=== PATIENT | female | born 1960 | race African-American/Black ===

== ENCOUNTER 2022-04-02 11:18 | Emergency (ER) | payer OTHER ==
[2022-04-02 11:31] VITALS: BP 151/86; PULSE 106; RESP 22; TEMP 98.6; BMI 31.1
[2022-04-02 13:45] LABS: BASO % 1.1 % (0-2.0); EOS % 2.6 % (0-4.5); HEMOGLOBIN 12.1 GM/dL (10.7-15.3); LYMPH % 23.2 % (8-40); MCH 29.3 pg (25.7-33.7); MCHC 31.8 g/dl (32.0-36.0); MEAN CELL VOLUME 91.9 fl (80-96); MEAN PLT VOLUME 9.2 fl (7.5-11.1); MONO % 6.9 % (3.8-10.2); NEUT % 66.2 % (42.8-82.8); PLATELET COUNT 336 10^3/uL (134-434); RBC 4.14 M/mm3 (3.60-5.2); RDW 15.4 % (11.6-15.6); WHITE BLOOD COUNT 8.1 K/mm3 (4.0-10.0)
[2022-04-02 13:59] LABS: INR 1.08 (0.83-1.09); PROTHROMBIN TIME (PATIENT) 12.4 SEC (9.7-13.0)
[2022-04-02 15:35] LABS: BLOOD UREA NITROGEN 4.3 mg/dL (7-18); CREATININE 0.7 mg/dL (0.55-1.3)
[2022-04-02 15:36] LABS: ALBUMIN 3.5 g/dl (3.4-5.0); BILIRUBIN,TOTAL 0.4 mg/dL (0.2-1); N-TERMINAL BNP 36.4 pg/ml (5-125); TOT PROT 7.9 g/dl (6.4-8.2)
== END 2022-04-02 17:28 | disposition home or self-care (01) ==
LOC: JERFT 11:18 → JER 11:18 → JERFT 17:28
DX: R06.02 Shortness of breath (principal)
CPT/HCPCS: 36415; 71046-TC-FY; 71275-TC; 80053; 83880; 84484; 85025; 85610; 93005; 93010; 99285-25; Q9967

== ENCOUNTER 2023-04-13 15:07 | Emergency (ER) | payer OTHER ==
[2023-04-13 15:28] VITALS: BP 112/73; PULSE 88; RESP 21; TEMP 98.2; BMI 34.0
[2023-04-13] MEDS ORDERED: DEXAMETHASONE SOD PHOSPHATE 10 MG/1 ML VIAL PO ONE (16:06)
[2023-04-13] MEDS ORDERED: BENZONATATE 200 MG CAPSULE PO ONE (16:07)
[2023-04-13] MEDS ORDERED: ALBUTEROL SO4 2.5/IPRATROPIUM 0.5 INH SOL 3 ML VIAL.NEB. NEB ONE (16:09)
[2023-04-13] MEDS ORDERED: DEXAMETHASONE SOD PHOSPHATE 10 MG/1 ML VIAL ONE (16:09)
[2023-04-13] MEDS: ALBUTEROL SO4 2.5/IPRATROPIUM 0.5 INH SOL 3 ML VIAL.NEB. NEB SCH ×2 (16:12→16:13)
== END 2023-04-13 18:33 | disposition home or self-care (01) ==
LOC: JERFT 15:07
PROC: 3E0F7GC Introduction of Other Therapeutic Substance into Respiratory Tract, Via Natural or Artificial Opening (ICD-10-PCS; principal; 2023-04-13)
DX: R09.81 Nasal congestion (principal); R05.1 Acute cough; J31.0 Chronic rhinitis
CPT/HCPCS: 26055; 71046-TC-FY; 99283-25; J1100

== ENCOUNTER 2023-04-18 12:41 | Emergency (ER) | payer OTHER ==
[2023-04-18 12:56] VITALS: BP 147/82; PULSE 108; RESP 18; TEMP 98.6; BMI 33.6
[2023-04-18] MEDS ORDERED: IBUPROFEN 600 MG TABLET (FP) PO ONE (14:22)
[2023-04-18] MEDS ORDERED: ALBUTEROL SO4 2.5/IPRATROPIUM 0.5 INH SOL 3 ML VIAL.NEB. NEB ONE (14:23)
[2023-04-18] MEDS ORDERED: IBUPROFEN 400 MG TABLET (FP) PO ONE (14:24)
[2023-04-18] MEDS: ALBUTEROL SO4 2.5/IPRATROPIUM 0.5 INH SOL 3 ML VIAL.NEB. NEB SCH ×3 (14:31→15:15)
[2023-04-18] MEDS ORDERED: DEXAMETHASONE SOD PHOSPHATE 10 MG/1 ML VIAL IM ONE (14:34)
[2023-04-18] MEDS ORDERED: AZITHROMYCIN 250 MG TABLET PO ONE (14:35)
[2023-04-18] MEDS ORDERED: DEXAMETHASONE SOD PHOSPHATE 10 MG/1 ML VIAL ONE (14:37)
[2023-04-18] MEDS ORDERED: AZITHROMYCIN 500 MG TABLET ONE (14:37)
== END 2023-04-18 15:57 | disposition home or self-care (01) ==
LOC: JER 12:41
PROC: 3E023GC Introduction of Other Therapeutic Substance into Muscle, Percutaneous Approach (ICD-10-PCS; principal; 2023-04-18)
PROC: 3E0F7GC Introduction of Other Therapeutic Substance into Respiratory Tract, Via Natural or Artificial Opening (ICD-10-PCS; 2023-04-18)
DX: K59.00 Constipation, unspecified (principal); R05.9 Cough, unspecified; R09.3 Abnormal sputum; M79.10 Myalgia, unspecified site; R09.81 Nasal congestion; J44.1 Chronic obstructive pulmonary disease with (acute) exacerbation; M54.6 Pain in thoracic spine; Z20.822 Contact with and (suspected) exposure to COVID-19
CPT/HCPCS: 0241U-QW; 99284-25; J1100

== ENCOUNTER 2023-05-06 10:31 | Observation (INO) | payer OTHER ==
[2023-05-06 11:18] VITALS: BMI 35.1
[2023-05-06] MEDS ORDERED: methylPREDNISolone NA SUCC 125 MG/2 ML VIAL IVPUSH ONE (12:18)
[2023-05-06] MEDS ORDERED: ALBUTEROL SO4 2.5/IPRATROPIUM 0.5 INH SOL 3 ML VIAL.NEB. NEB ONE ×2 (12:18→12:41)
[2023-05-06] MEDS ORDERED: ACETAMINOPHEN 1000 MG/100 ML BAG IVPB ONE (12:19)
[2023-05-06] MEDS ORDERED: methylPREDNISolone NA SUCC 125 MG/2 ML VIAL ONE (13:00)
[2023-05-06] MEDS ORDERED: ACETAMINOPHEN INJECTION 100 ML IVPB ONE (13:00)
[2023-05-06 13:23] LABS: VENOUS BASE EXCESS -4.2 mmol/L (-2-2); VENOUS O2 SATURATION 72.6 % (70-80); VENOUS PH 7.322 (7.310-7.410)
[2023-05-06 13:26] LABS: BASO % 0.8 % (0-2.0); EOS % 8.1 % (0-4.5); HEMATOCRIT 35.5 % (32.4-45.2); MCH 30.9 pg (25.7-33.7); MCHC 30.9 g/dl (32.0-36.0); MEAN CELL VOLUME 99.8 fl (80-96); MEAN PLT VOLUME 8.9 fl (7.5-11.1); MONO % 5.1 % (3.8-10.2); PLATELET COUNT 358 10^3/uL (134-434); RBC 3.56 M/mm3 (3.60-5.2); RDW 15.2 % (11.6-15.6); WHITE BLOOD COUNT 12.5 K/mm3 (4.0-10.0)
[2023-05-06 14:01] LABS: ALBUMIN 3.2 g/dl (3.4-5.0); BLOOD UREA NITROGEN 8.3 mg/dL (7-18); CALCIUM 9.4 mg/dL (8.5-10.1)
[2023-05-06 14:04] LABS: CREATININE 0.8 mg/dL (0.55-1.3)
[2023-05-06 14:09] LABS: BILIRUBIN,TOTAL 0.3 mg/dL (0.2-1)
[2023-05-06 14:10] LABS: INR 0.97 (0.83-1.09); PROTHROMBIN TIME (PATIENT) 11.3 SEC (9.7-13.0)
[2023-05-06 14:13] LABS: ACTIVATED PTT 31.1 SECONDS (25.2-36.5)
[2023-05-06] MEDS ORDERED: ALBUTEROL SO4 2.5/IPRATROPIUM 0.5 INH SOL 3 ML VIAL.NEB. NEB PRN (16:23)
[2023-05-06] MEDS ORDERED: DOXYCYCLINE INJECTION 100 MG in DEXTROSE 5%-WATER 100 ML IVPB SCH (16:30)
[2023-05-06] MEDS ORDERED: CEFTRIAXONE 1 GM/50 ML BAG ONE ×2 (16:56→16:57)
[2023-05-06] MEDS ORDERED: DOXYCYCLINE HYCLATE 100 MG VIAL ONE (16:56)
[2023-05-06] MEDS ORDERED: PIPERACILLIN/TAZOB 3.375 GM 3.375 GM in DEXTROSE 5%-WATER - 50 ML IVPB SCH (17:00)
[2023-05-06] MEDS ORDERED: VANCOMYCIN 1 GRAM (PRE-DOCKED) 1,000 MG/250 ML BAG IVPB ONE (17:00)
[2023-05-06] MEDS: CEFTRIAXONE 1 GM in DEXTROSE 5%-WATER - 50 ML IVPB SCH (17:11)
[2023-05-06] MEDS ORDERED: MIDAZOLAM HCL 2 MG/2 ML SINGLE DOSE VIAL ONE (17:13)
[2023-05-06] MEDS ORDERED: INSULIN (NOVOLOG) ASPART 100 UNITS/ML 10ML VIAL ONE (17:19)
[2023-05-06] MEDS ORDERED: ENOXAPARIN NA (PORCINE) 40 MG/0.4 ML DISP.SYRIN SQ ONE (17:19)
[2023-05-06] MEDS ORDERED: AZITHROMYCIN IVPB 500 MG/250 ML BAG IVPB ONE ×2 (17:30→17:39)
[2023-05-06] MEDS: INSULIN SLIDING SCALE (NOVOLOG) 1 VIAL SQ SCH (17:32)
[2023-05-06] MEDS: ENOXAPARIN NA (PORCINE) 40 MG/0.4 ML DISP.SYRIN SQ SCH (17:33)
[2023-05-06] MEDS ORDERED: methylPREDNISolone NA SUCC 40 MG/1 ML VIAL IVPB SCH (22:00)
[2023-05-07] MEDS: INSULIN SLIDING SCALE (NOVOLOG) 1 VIAL SQ SCH ×3 (00:12→11:06)
[2023-05-07] MEDS: BUDESONIDE/FORMETEROL FUMARATE 80/4.5 mcg INHALER IH SCH ×2 (00:31→09:23)
[2023-05-07 06:43] LABS: BASO % 0.3 % (0-2.0); HEMATOCRIT 30.6 % (32.4-45.2); HEMOGLOBIN 9.6 GM/dL (10.7-15.3); LYMPH % 8.2 % (8-40); MCH 30.6 pg (25.7-33.7); MCHC 31.5 g/dl (32.0-36.0); MEAN CELL VOLUME 97.2 fl (80-96); MEAN PLT VOLUME 8.9 fl (7.5-11.1); MONO % 3.9 % (3.8-10.2); NEUT % 87.6 % (42.8-82.8); PLATELET COUNT 351 10^3/uL (134-434); RBC 3.15 M/mm3 (3.60-5.2); RDW 15.2 % (11.6-15.6); WHITE BLOOD COUNT 14.5 K/mm3 (4.0-10.0)
[2023-05-07 06:56] LABS: POTASSIUM 4.2 mmol/L (3.5-5.1)
[2023-05-07 06:57] VITALS: RESP 20
[2023-05-07 07:02] LABS: CALCIUM 9.6 mg/dL (8.5-10.1)
[2023-05-07 07:03] LABS: ALBUMIN 3.1 g/dl (3.4-5.0)
[2023-05-07 07:05] LABS: PHOSPHOROUS 2.7 mg/dL (2.5-4.9)
[2023-05-07 07:06] LABS: CREATININE 0.9 mg/dL (0.55-1.3)
[2023-05-07 07:07] LABS: BILIRUBIN,TOTAL 0.4 mg/dL (0.2-1); TOT PROT 6.6 g/dl (6.4-8.2)
[2023-05-07] MEDS: methylPREDNISolone NA SUCC 40 MG/1 ML VIAL IVPUSH SCH ×2 (08:37→09:23)
[2023-05-07] MEDS: PANTOPRAZOLE 20 MG TABLET PO SCH ×2 (08:37→09:23)
[2023-05-07] MEDS: ENOXAPARIN NA (PORCINE) 40 MG/0.4 ML DISP.SYRIN SQ SCH ×2 (08:37→09:22)
[2023-05-07] MEDS: CEFTRIAXONE 1 GM in DEXTROSE 5%-WATER - 50 ML IVPB SCH ×2 (08:39→09:23)
[2023-05-07] MEDS ORDERED: CEFTRIAXONE 1 GM/50 ML BAG ONE (08:39)
[2023-05-07] MEDS ORDERED: AZITHROMYCIN IVPB 250 MG in DEXTROSE 5%-WATER - 250 ML IVPB SCH (10:00)
[2023-05-07 11:51] VITALS: BP 160/76; PULSE 100; TEMP 97.8
== END 2023-05-07 12:00 | disposition home or self-care (01) ==
LOC: JER 10:31 → JERBED 15:53
PROVIDERS: ADMIT Student in an Organized Health Care Education/Training Program
PROC: 3E033NZ Introduction of Analgesics, Hypnotics, Sedatives into Peripheral Vein, Percutaneous Approach (ICD-10-PCS; principal; 2023-05-06)
PROC: 3E0F7GC Introduction of Other Therapeutic Substance into Respiratory Tract, Via Natural or Artificial Opening (ICD-10-PCS; 2023-05-06)
PROC: 3E03329 Introduction of Other Anti-infective into Peripheral Vein, Percutaneous Approach (ICD-10-PCS; 2023-05-06)
PROC: 3E013VG Introduction of Insulin into Subcutaneous Tissue, Percutaneous Approach (ICD-10-PCS; 2023-05-06)
DX: J44.1 Chronic obstructive pulmonary disease with (acute) exacerbation (principal); E11.9 Type 2 diabetes mellitus without complications; I10 Essential (primary) hypertension; B20 Human immunodeficiency virus [HIV] disease; Z72.0 Tobacco use; Z88.2 Allergy status to sulfonamides
CPT/HCPCS: 0241U-QW; 36415; 71045-TC-FY; 71250-TC; 80053; 82308; 82803; 82962; 83735; 84100; 84484; 85025; 85610; 85730; 87081; 87899; 94640; 96365; 96372; 96375; 99285-25; G0378

== ENCOUNTER 2024-07-26 14:21 | Emergency (ER) | payer OTHER ==
[2024-07-26 14:31] VITALS: TEMP 98.9; BMI 34.4
[2024-07-26] MEDS ORDERED: CIPROFLOXACIN 400 MG/D5W 400 MG/200 ML IVPB IVPB ONE (15:14)
[2024-07-26] MEDS ORDERED: ALBUTEROL SO4 0.083% IH SOL 2.5 MG/3 ML VIAL.NEB. NEB ONE (15:15)
[2024-07-26] MEDS: ALBUTEROL SO4 0.083% IH SOL 2.5 MG/3 ML VIAL.NEB. NEB ONE (15:23)
[2024-07-26] MEDS ORDERED: ALBUTEROL SO4 2.5/IPRATROPIUM 0.5 INH SOL 3 ML VIAL.NEB. NEB ONE (15:30)
[2024-07-26] MEDS: ALBUTEROL SO4 2.5/IPRATROPIUM 0.5 INH SOL 3 ML VIAL.NEB. NEB SCH (16:10)
[2024-07-26 16:11] LABS: VENOUS BASE EXCESS -3.2 mmol/L (-2-2); VENOUS O2 SATURATION 59.2 % (70-80); VENOUS PCO2 47.9 mmHg (38-52); VENOUS PH 7.306 (7.310-7.410)
[2024-07-26 16:12] LABS: BASO % 0.5 % (0-2.0); EOS % 1.5 % (0-4.5); HEMATOCRIT 36.6 % (32.4-45.2); HEMOGLOBIN 11.9 GM/dL (10.7-15.3); LYMPH % 22.4 % (8-40); MCH 30.2 pg (25.7-33.7); MCHC 32.6 g/dl (32.0-36.0); MEAN CELL VOLUME 92.5 fl (80-96); MEAN PLT VOLUME 8.8 fl (7.5-11.1); MONO % 10.6 % (3.8-10.2); PLATELET COUNT 177 10^3/uL (134-434); RBC 3.95 M/mm3 (3.60-5.2); RDW 14.5 % (11.6-15.6)
[2024-07-26] MEDS: SODIUM CHLORIDE 1,000 ML IV STA ×2 (16:20→18:41)
[2024-07-26] MEDS ORDERED: PIPERACILLIN/TAZOB 4.5 GM 4.5 GM/100 ML BAG IVPB ONE (16:25)
[2024-07-26] MEDS ORDERED: VANCOMYCIN 1 GM PREMIX (F) 1 GM/200 ML BAG ONE (16:25)
[2024-07-26] MEDS ORDERED: ACETYLCYSTEINE 20% 200MG/ML 4 ML VIAL *FOR ORAL / INH USE ONLY ONE (16:27)
[2024-07-26 16:32] LABS: POTASSIUM 5.6 mmol/L (3.5-5.1)
[2024-07-26 16:35] LABS: ALBUMIN 3.2 g/dl (3.4-5.0); BLOOD UREA NITROGEN 10.8 mg/dL (7-18); CALCIUM 9.5 mg/dL (8.5-10.1)
[2024-07-26] MEDS: PIPERACILLIN/TAZOB 4.5 GM 4.5 GM in DEXTROSE 5%-WATER 100 ML IVPB ONE (16:37)
[2024-07-26] MEDS: ACETYLCYSTEINE 20% 200MG/ML 30 ML VIAL *FOR ORAL / INH USE ONLY NEB ONE (16:37)
[2024-07-26 16:39] LABS: BILIRUBIN,TOTAL 0.4 mg/dL (0.2-1)
[2024-07-26 16:40] LABS: TOT PROT 7.2 g/dl (6.4-8.2)
[2024-07-26 16:43] LABS: N-TERMINAL BNP 22.9 pg/ml (5-125)
[2024-07-26 17:05] VITALS: RESP 20
[2024-07-26] MEDS: VANCOMYCIN 1,000 MG in DEXTROSE 5%-WATER - 250 ML IVPB ONE (18:41)
[2024-07-26 19:54] VITALS: BP 115/51; PULSE 94
== END 2024-07-26 20:12 | disposition home or self-care (01) ==
LOC: JER 14:21
PROC: 3E03329 Introduction of Other Anti-infective into Peripheral Vein, Percutaneous Approach (ICD-10-PCS; principal; 2024-07-26)
PROC: 3E03329 Introduction of Other Anti-infective into Peripheral Vein, Percutaneous Approach (ICD-10-PCS; 2024-07-26)
PROC: 3E033GC Introduction of Other Therapeutic Substance into Peripheral Vein, Percutaneous Approach (ICD-10-PCS; 2024-07-26)
PROC: 3E0F7GC Introduction of Other Therapeutic Substance into Respiratory Tract, Via Natural or Artificial Opening (ICD-10-PCS; 2024-07-26)
DX: J10.1 Influenza due to other identified influenza virus with other respiratory manifestations (principal); R05.9 Cough, unspecified; R09.81 Nasal congestion; M79.10 Myalgia, unspecified site; R50.9 Fever, unspecified; Z20.822 Contact with and (suspected) exposure to COVID-19
CPT/HCPCS: 0241U-QW; 36415; 71046-TC-FY; 80053; 82803; 83605; 83880; 84484; 85025; 93005; 93010; 99291

== ENCOUNTER 2024-10-04 10:15 | Emergency (ER) | payer OTHER ==
[2024-10-04 10:50] VITALS: TEMP 98.3; BMI 32.5
[2024-10-04] MEDS ORDERED: KETOROLAC TROMETHAMINE 30 MG/1 ML VIAL ONE (10:53)
[2024-10-04] MEDS ORDERED: METHOCARBAMOL 500 MG TABLET ONE (10:53)
[2024-10-04] MEDS: METHOCARBAMOL 500 MG TABLET PO ONE (11:05)
[2024-10-04] MEDS: KETOROLAC TROMETHAMINE 30 MG/1 ML VIAL IM ONE (11:05)
[2024-10-04] MEDS ORDERED: LIDOCAINE 4% PATCH TP ONE (12:27)
[2024-10-04] MEDS: LIDOCAINE 4% PATCH TP ONE (12:33)
[2024-10-04 14:55] VITALS: BP 158/72; PULSE 78; RESP 20
[2024-10-04] MEDS ORDERED: LIDOCAINE PATCH REMOVAL MC SCH (22:00)
== END 2024-10-04 16:04 | disposition home or self-care (01) ==
LOC: JER 10:15
PROC: 3E0233Z Introduction of Anti-inflammatory into Muscle, Percutaneous Approach (ICD-10-PCS; principal; 2024-10-04)
DX: M25.552 Pain in left hip (principal); M79.652 Pain in left thigh; M25.561 Pain in right knee; M25.562 Pain in left knee; G89.29 Other chronic pain
CPT/HCPCS: 73502-TC-LT-FY; 99284-25

== ENCOUNTER 2024-11-10 18:38 | Emergency (ER) | payer OTHER ==
[2024-11-10 18:54] VITALS: PULSE 103; TEMP 98.8; BMI 33.0
[2024-11-10 19:34] VITALS: BP 121/56; RESP 23
[2024-11-10] MEDS ORDERED: ALBUTEROL SO4 2.5/IPRATROPIUM 0.5 INH SOL 3 ML VIAL.NEB. NEB ONE ×2 (20:39→22:13)
[2024-11-10] MEDS: ALBUTEROL SO4 2.5/IPRATROPIUM 0.5 INH SOL 3 ML VIAL.NEB. NEB ONE (20:40)
[2024-11-10 20:56] LABS: BASOPHILS # 0.04 x10^3/uL (0.01-0.08); EOSINOPHIL % 1.9 % (0.7-5.8); EOSINOPHILS # 0.26 x10^3/uL (0.04-0.36); HEMATOCRIT 41.8 % (34.1-44.9); MCHC 31.1 g/dl (32.2-35.5); MEAN CELL VOLUME 94.8 fl (79.4-94.8); MEAN PLT VOLUME 10.9 fl (9.4-12.3); MONOCYTE % 7.2 % (4.7-12.5); PLATELET COUNT 275 x10^3/uL (182-369); RDW 14.4 % (12.4-16.4)
[2024-11-10 21:04] LABS: VENOUS BASE EXCESS -2.5 mmol/L (-2-2); VENOUS O2 SATURATION 76.6 % (70-80); VENOUS PCO2 39.3 mmHg (38-52); VENOUS PH 7.374 (7.310-7.410)
[2024-11-10 21:10] LABS: INR 1.06 (0.83-1.09); PROTHROMBIN TIME (PATIENT) 11.5 SEC (9.7-13.0)
[2024-11-10 21:12] LABS: ACTIVATED PTT 32.5 SECONDS (25.2-36.5)
[2024-11-10 21:14] LABS: POTASSIUM 3.7 mmol/L (3.5-5.1)
[2024-11-10 21:16] LABS: CALCIUM 10.5 mg/dL (8.5-10.1)
[2024-11-10 21:17] LABS: ALBUMIN 3.6 g/dl (3.4-5.0); BLOOD UREA NITROGEN 12.7 mg/dL (7-18)
[2024-11-10 21:20] LABS: CREATININE 0.9 mg/dL (0.55-1.3)
[2024-11-10 21:21] LABS: BILIRUBIN,TOTAL 0.4 mg/dL (0.2-1)
[2024-11-10] MEDS ORDERED: predniSONE 20 MG TABLET (UD) ONE (22:13)
[2024-11-10] MEDS: ALBUTEROL SO4 2.5/IPRATROPIUM 0.5 INH SOL 3 ML VIAL.NEB. NEB SCH (22:18)
[2024-11-10] MEDS: predniSONE 20 MG TABLET (UD) PO ONE (22:18)
[2024-11-10] MEDS ORDERED: AZITHROMYCIN 500 MG TABLET ONE (22:19)
[2024-11-10] MEDS: AZITHROMYCIN 250 MG TABLET PO ONE (22:24)
[2024-11-10] MEDS ORDERED: amLODIPine BESYLATE 10 MG TABLET (FP) ONE (23:24)
[2024-11-10] MEDS ORDERED: VALSARTAN 80 MG TABLET ONE (23:25)
[2024-11-10] MEDS: amLODIPine BESYLATE 10 MG TABLET (FP) PO ONE (23:35)
[2024-11-10] MEDS: VALSARTAN 40 MG TABLET PO ONE (23:35)
== END 2024-11-10 23:49 | disposition home or self-care (01) ==
LOC: JER 18:38
PROC: 3E0F7GC Introduction of Other Therapeutic Substance into Respiratory Tract, Via Natural or Artificial Opening (ICD-10-PCS; principal; 2024-11-10)
PROC: 3E0F7GC Introduction of Other Therapeutic Substance into Respiratory Tract, Via Natural or Artificial Opening (ICD-10-PCS; 2024-11-10)
DX: J18.9 Pneumonia, unspecified organism (principal); R06.02 Shortness of breath; R05.9 Cough, unspecified; R06.03 Acute respiratory distress; F17.210 Nicotine dependence, cigarettes, uncomplicated; Z71.6 Tobacco abuse counseling
CPT/HCPCS: 0241U-QW; 36415; 71045-TC-FY; 80053; 82803; 83735; 83880; 84484; 85025; 85610; 85730; 86850; 86900; 86901; 93005; 93010; 99285-25